=== PATIENT | male | born 1955 | race Caucasian/White ===

== ENCOUNTER 2017-05-31 12:10 | Inpatient (IN) | payer MEDICAID ==
[~2017-05-31] VITALS: Ht 188 cm; Wt 64.3 kg
[~2017-05-31 12:10] MED LIST: AZIT250T PO
[2017-05-31] MEDS ORDERED: ipratropium/albuterol 3ml nebule NEB ONE (12:20)
[2017-05-31] MEDS ORDERED: methylPREDNISolone sod succ 125mg/2ml vial IV ONE (12:20)
[2017-05-31] MEDS ORDERED: normal saline 1000ML IV soln IVB ONE (12:20)
[2017-05-31 12:50] LABS: BASOPHILS % (AUTO) 0 % (0-1); EOSINOPHILS % (AUTO) 0 % (0-6); HEMATOCRIT 46.1 % (42.0-52.0); LYMPHOCYTES # (AUTO) 1.6 X10'3 (1.1-4.8); LYMPHOCYTES % (AUTO) 12.8 % (21-51); MEAN CORPUSCULAR HGB CONC 34.8 % (33.0-36.5); MEAN CORPUSCULAR VOLUME 86.3 FL (78-98); MEAN PLATELET VOLUME 8.6 FL (7.4-10.4); MONOCYTES # (AUTO) 0.7 X10'3 (0-0.9); MONOCYTES % (AUTO) 5.4 % (2-12); NEUTROPHILS # (AUTO) 10.1 X10'3 (1.8-7.7); NEUTROPHILS % (AUTO) 81.8 % (42-75); PLATELET COUNT 317 X10'3 (140-440); RED BLOOD COUNT 5.34 X10'6 (4.70-6.10); RED CELL DISTRIBUTION WIDTH 14.1 % (11.5-14.5); WHITE BLOOD COUNT 12.4 X10'3 (4.5-11.0)
[2017-05-31 13:09] LABS: ALANINE AMINOTRANSFERASE 25 U/L (12-78); ALBUMIN 3.7 G/DL (3.4-5.0); ALBUMIN/GLOBULIN RATIO 0.8 (1.1-1.5); ALKALINE PHOSPHATASE 89 IU/L (46-116); ANION GAP 12 (8-16); ASPARTATE AMINO TRANSFERASE 19 U/L (10-37); BILIRUBIN,TOTAL 1.6 MG/DL (0.1-1.0); BLOOD UREA NITROGEN 22 MG/DL (7-18); BUN/CREATININE RATIO 21.4 (5.4-32.0); CALCIUM 9.1 MG/DL (8.5-10.1); CHLORIDE 97 MMOL/L (99-107); CREATININE 1.03 MG/DL (0.60-1.10); GLUCOSE 124 MG/DL (70-104); POTASSIUM 3.6 MMOL/L (3.5-5.1); SODIUM 134 MMOL/L (135-145); TOTAL CARBON DIOXIDE 24.9 MMOL/L (24-32); TOTAL PROTEIN 8.2 G/DL (6.4-8.2); eGFR 74 ML/MIN
[2017-05-31] MEDS ORDERED: aspirin 81mg tab.chew PO ONE (13:15)
[2017-05-31] MEDS ORDERED: nitroGLYCERIN 0.4mg SUBLingual tab SL PRN ×2 (13:15→15:15)
[2017-05-31] MEDS ORDERED: enoxaparin 100mg/ml syringe SUBCUT ONE (13:15)
[2017-05-31] MEDS ORDERED: heparin 10,000 units/1 ML INJ IV ONE ×2 (13:40→15:15)
[2017-05-31] MEDS ORDERED: levoFLOXACIN-Levaquin 750MG/D5 150 ML IV ONE (13:45)
[2017-05-31] MEDS ORDERED: magnesium Cl slow-release 64mg tablet PO PRN (15:15)
[2017-05-31] MEDS ORDERED: morphine 2 MG/ML inj. syringe IV PRN ×2 (15:15)
[2017-05-31] MEDS ORDERED: ipratropium/albuterol 3ml nebule NEB PRN (15:15)
[2017-05-31] MEDS ORDERED: potassium Cl 40MEQ/NS 500ml 500 ML IV PRN ×2 (15:15)
[2017-05-31] MEDS ORDERED: potassium Cl 20 mEq SR tablet PO PRN ×2 (15:15)
[2017-05-31] MEDS ORDERED: acetaminophen 325mg tablet PO PRN (15:15)
[2017-05-31] MEDS ORDERED: magnesium 2GM in 50ml NS 50 ML IV PRN (15:15)
[2017-05-31] MEDS ORDERED: enoxaparin 60mg/0.6ml syringe SUBCUT ONE (15:15)
[2017-05-31] MEDS ORDERED: magnesium hydroxide 30ml (MOM) UD suspension PO PRN (15:15)
[2017-05-31] MEDS ORDERED: metoprolol tartrate 1mg/ml inj IV PRN (15:15)
[2017-05-31] MEDS ORDERED: magnesium 4gm in 100ml NS 100 ML IV PRN (15:15)
[2017-05-31] MEDS ORDERED: ondansetron/PF 4mg/2ml inj IV PRN (15:15)
[2017-05-31] MEDS ORDERED: mag hydrox/Alum hydrox/simeth 30ml oral suspension PO PRN (15:15)
[2017-05-31] MEDS: normal saline 1000ml 1,000 ML IV SCH (16:00)
[2017-05-31] MEDS: vancomycin/NS 1 GM ADD-VANTAGE 250 ML IV SCH (16:00)
[2017-05-31 16:35] LABS: CLARITY,URINE CLEAR (Clear); COLOR,URINE YELLOW (Yellow); GLUCOSE, URINE 100 mg/dl (Neg); KETONES,URINE NEGATIVE (Neg); LEUKOCYTE ESTERASE ,URINE NEGATIVE (Neg); NITRITES, URINE NEGATIVE (Neg); OCCULT BLOOD,URINE TRACE-INTACT (Neg); PROTEIN,URINE NEGATIVE (Neg)
[2017-05-31 16:44] LABS: URINE AMPHETAMINE SCREEN POSITIVE (Neg); URINE BARBITUATE SCREEN NEGATIVE (Neg); URINE BENZODIAZEPINES SCREEN NEGATIVE (Neg); URINE CANNABINOID SCREEN POSITIVE (Neg); URINE COCAINE SCREEN NEGATIVE (Neg); URINE METHADONE SCREEN NEGATIVE (Neg); URINE OPIATE SCREEN NEGATIVE (Neg); URINE PHENCYCLIDINE SCREEN NEGATIVE (Neg)
[2017-05-31 16:57] LABS: UA COLLECTION TYPE URINAL
[2017-05-31 17:08] LABS: RBC,URINE 0-2 /HPF (0-2); WBC,URINE 0-4 /HPF (0-4)
[2017-05-31 17:09] LABS: BACTERIA,URINE NONE SEEN /HPF (Neg); MUCUS STRANDS NONE SEEN /LPF (Neg); SQUAMOUS EPITHELIAL CELL,UR NONE SEEN /LPF (FEW)
[2017-05-31] MEDS ORDERED: NO HOME MEDS (17:26)
[2017-05-31] MEDS: carVEDilol 3.125mg tablet PO SCH (19:59)
[2017-05-31] MEDS: heparin 10,000 units/1 ML INJ IV PRN (20:01)
[2017-06-01 00:54] LABS: BASOPHILS % (AUTO) 0.1 % (0-1); EOSINOPHILS % (AUTO) 0 % (0-6); HEMOGLOBIN 14.8 g/dl (14.0-17.9); LYMPHOCYTES # (AUTO) 0.6 X10'3 (1.1-4.8); LYMPHOCYTES % (AUTO) 7.1 % (21-51); MEAN CORPUSCULAR HEMOGLOBIN 29.2 PG (27.0-31.0); MEAN CORPUSCULAR HGB CONC 33.6 % (33.0-36.5); MEAN CORPUSCULAR VOLUME 86.7 FL (78-98); MEAN PLATELET VOLUME 8.3 FL (7.4-10.4); MONOCYTES # (AUTO) 0.3 X10'3 (0-0.9); NEUTROPHILS # (AUTO) 8.1 X10'3 (1.8-7.7); NEUTROPHILS % (AUTO) 89.8 % (42-75); PLATELET COUNT 295 X10'3 (140-440); RED BLOOD COUNT 5.07 X10'6 (4.70-6.10); RED CELL DISTRIBUTION WIDTH 13.3 % (11.5-14.5)
[2017-06-01 01:13] LABS: ALANINE AMINOTRANSFERASE 21 U/L (12-78); ALBUMIN/GLOBULIN RATIO 0.8 (1.1-1.5); ALKALINE PHOSPHATASE 76 IU/L (46-116); ANION GAP 11 (8-16); ASPARTATE AMINO TRANSFERASE 18 U/L (10-37); BILIRUBIN,TOTAL 0.8 MG/DL (0.1-1.0); BLOOD UREA NITROGEN 15 MG/DL (7-18); CALCIUM 8.5 MG/DL (8.5-10.1); CHLORIDE 104 MMOL/L (99-107); CREATININE 0.75 MG/DL (0.60-1.10); GLUCOSE 148 MG/DL (70-104); SODIUM 139 MMOL/L (135-145); TOTAL CARBON DIOXIDE 23.7 MMOL/L (24-32); eGFR > 90 ML/MIN
[2017-06-01] MEDS: heparin 10,000 units/1 ML INJ IV PRN ×2 (01:50→06:32)
[2017-06-01] MEDS: vancomycin/NS 1 GM ADD-VANTAGE 250 ML IV SCH ×2 (04:42→16:05)
[2017-06-01] MEDS ORDERED: metoprolol tartrate 1mg/ml inj IV PRN (07:05)
[2017-06-01] MEDS ORDERED: nitroGLYCERIN 0.4mg SUBLingual tab SL PRN (07:05)
[2017-06-01] MEDS ORDERED: regadenoson 0.4mg/5ml syringe IV ONE (07:05)
[2017-06-01] MEDS ORDERED: aminophylline 250mg/10ml inj. IV PRN (07:05)
[2017-06-01] MEDS ORDERED: aspirin 325mg tablet PO SCH (08:30)
[2017-06-01 08:45] VITALS: BP 129/83
[2017-06-01] MEDS: K and/or MAG REPLACEMENT MC SCH (09:19)
[2017-06-01] MEDS: atorvastatin 10mg tablet PO SCH (09:26)
[2017-06-01] MEDS: aspirin 81mg tab.chew PO SCH (09:26)
[2017-06-01] MEDS: carVEDilol 3.125mg tablet PO SCH ×2 (09:26→19:28)
[2017-06-01 10:17] LABS: CHOL/HDL RATIO 1.9 (0.00-4.99); CHOLESTEROL 139 MG/DL (0-200); HDL CHOLESTEROL 73 MG/DL (35-60); LDL CHOLESTEROL 59 MG/DL (50-100); TRIGLYCERIDES 45 MG/DL (20-135)
[2017-06-01 11:00] VITALS: BP 122/72
[2017-06-01] MEDS: normal saline 1000ml 1,000 ML IV SCH (12:26)
[2017-06-01 15:24] VITALS: BP 120/63
[2017-06-01 19:16] VITALS: BP 127/77
[2017-06-01] MEDS: lactobacillus rhamnosus 10,000 MMU CELLS/CAPSULE PO SCH (19:28)
[2017-06-01] MEDS: heparin, porcine 5000 units/ml vial SQ SCH (19:34)
[2017-06-01 20:50] VITALS: BP_SYST 117; BP_SYST 132; BP_SYST 145; BP_DIAS 110; BP_DIAS 67; BP_DIAS 80
[2017-06-01 22:00] VITALS: BP 120/68
[2017-06-02 02:00] VITALS: BP 101/75
[2017-06-02] MEDS ORDERED: VANCOMYCIN LEVEL IV ONE (03:30)
[2017-06-02 05:30] VITALS: BP 139/99
[2017-06-02 06:40] LABS: BASOPHILS % (AUTO) 0.5 % (0-1); EOSINOPHILS # (AUTO) 0.1 X10'3 (0-0.9); EOSINOPHILS % (AUTO) 2.1 % (0-6); HEMATOCRIT 42.6 % (42.0-52.0); HEMOGLOBIN 14.8 g/dl (14.0-17.9); LYMPHOCYTES % (AUTO) 35.4 % (21-51); MEAN CORPUSCULAR HGB CONC 34.6 % (33.0-36.5); MEAN CORPUSCULAR VOLUME 86.7 FL (78-98); MEAN PLATELET VOLUME 8.3 FL (7.4-10.4); MONOCYTES # (AUTO) 0.4 X10'3 (0-0.9); MONOCYTES % (AUTO) 7.3 % (2-12); NEUTROPHILS % (AUTO) 54.7 % (42-75); PLATELET COUNT 271 X10'3 (140-440); RED BLOOD COUNT 4.92 X10'6 (4.70-6.10); RED CELL DISTRIBUTION WIDTH 14.3 % (11.5-14.5); WHITE BLOOD COUNT 5.5 X10'3 (4.5-11.0)
[2017-06-02 06:56] LABS: ALANINE AMINOTRANSFERASE 22 U/L (12-78); ALBUMIN 2.9 G/DL (3.4-5.0); ALBUMIN/GLOBULIN RATIO 0.7 (1.1-1.5); ALKALINE PHOSPHATASE 66 IU/L (46-116); ANION GAP 10 (8-16); ASPARTATE AMINO TRANSFERASE 13 U/L (10-37); BILIRUBIN,TOTAL 0.3 MG/DL (0.1-1.0); BLOOD UREA NITROGEN 16 MG/DL (7-18); BUN/CREATININE RATIO 25.4 (5.4-32.0); CALCIUM 8.9 MG/DL (8.5-10.1); CHLORIDE 107 MMOL/L (99-107); CREATININE 0.63 MG/DL (0.60-1.10); GLUCOSE 89 MG/DL (70-104); MAGNESIUM 1.9 MG/DL (1.5-2.4); POTASSIUM 4.2 MMOL/L (3.5-5.1); SODIUM 141 MMOL/L (135-145); TOTAL CARBON DIOXIDE 23.7 MMOL/L (24-32); TOTAL PROTEIN 6.9 G/DL (6.4-8.2); VANCOMYCIN,TROUGH 4.4 UG/ML (6.0-14.0); eGFR > 90 ML/MIN
[2017-06-02] MEDS ORDERED: magnesium 2GM in 50ml NS 50 ML IV ONE (07:35)
[2017-06-02] MEDS: K and/or MAG REPLACEMENT MC SCH (08:00)
[2017-06-02] MEDS: heparin, porcine 5000 units/ml vial SQ SCH (08:27)
[2017-06-02] MEDS: carVEDilol 3.125mg tablet PO SCH (08:27)
[2017-06-02] MEDS: atorvastatin 10mg tablet PO SCH (08:27)
[2017-06-02] MEDS: lactobacillus rhamnosus 10,000 MMU CELLS/CAPSULE PO SCH (08:27)
[2017-06-02] MEDS: aspirin 81mg tab.chew PO SCH (08:27)
[2017-06-02] MEDS ORDERED: vancomycin/NS 1 GM ADD-VANTAGE 250 ML IV SCH (09:00)
[2017-06-02] MEDS ORDERED: NITR0.4T51 SL (09:54)
[2017-06-02] MEDS ORDERED: SULF1TAB49 PO (09:54)
[2017-06-02] MEDS ORDERED: COR3.125T PO (09:54)
[2017-06-02] MEDS ORDERED: ASPI-1265 PO (09:54)
[2017-06-02] MEDS ORDERED: ATOR10TA PO (09:54)
[2017-06-02 11:00] VITALS: BP 125/77
[2017-06-02 12:00] VITALS: BP_SYST 115; BP_SYST 117; BP_SYST 125; BP_DIAS 74; BP_DIAS 77; BP_DIAS 85
[2017-06-03] MEDS ORDERED: VANCOMYCIN LEVEL IV NR (08:30)
== END 2017-06-02 13:00 | disposition home or self-care (01) | DRG 383 ==
LOC: ER 12:12 → ED HOLD 15:14 → PCU 3S 06-01 08:31
PROVIDERS: ADMIT Family Medicine; ATTEND Family Medicine
DX: L03.114 Cellulitis of left upper limb (principal); I47.2 Ventricular tachycardia; R07.9 Chest pain, unspecified; I25.2 Old myocardial infarction; I10 Essential (primary) hypertension; E78.00 Pure hypercholesterolemia, unspecified; E78.5 Hyperlipidemia, unspecified; F17.210 Nicotine dependence, cigarettes, uncomplicated; B19.20 Unspecified viral hepatitis C without hepatic coma; G89.29 Other chronic pain; M54.9 Dorsalgia, unspecified; J44.0 Chronic obstructive pulmonary disease with (acute) lower respiratory infection; F15.10 Other stimulant abuse, uncomplicated; Z59.0 Homelessness; L03.012 Cellulitis of left finger; W18.39XA Other fall on same level, initial encounter; Z82.5 Family history of asthma and other chronic lower respiratory diseases; Z83.3 Family history of diabetes mellitus; Z88.8 Allergy status to other drugs, medicaments and biological substances; Z91.041 Radiographic dye allergy status; Z68.1 Body mass index [BMI] 19.9 or less, adult; Z91.14 Patient's other noncompliance with medication regimen; Z95.1 Presence of aortocoronary bypass graft; Y93.89 Activity, other specified; Y92.89 Other specified places as the place of occurrence of the external cause; Y99.8 Other external cause status; Z95.5 Presence of coronary angioplasty implant and graft; Z91.19 Patient's noncompliance with other medical treatment and regimen
CPT/HCPCS: 36415; 71046; 73110; 80053; 80061; 80202; 80305; 81001; 83605; 83735; 83880; 84484; 85025; 85730; 87040; 87070; 93005; 93306; 94640; 94760; 96365; 96375; 99291; J1644; J1956; J2930; J3370; J3475; J7030

== ENCOUNTER 2018-03-01 16:01 | Emergency (ER) | payer MEDICAID ==
[~2018-03-01] VITALS: Ht 180.3 cm; Wt 68.2 kg
[~2018-03-01 16:01] MED LIST changes: +ASPI-1265 PO; +ATOR10TA PO; -AZIT250T PO; +COR3.125T PO; +NITR0.4T51 SL; +NO HOME MEDS
[2018-03-01 16:11] VITALS: BP 149/77
[2018-03-01] MEDS ORDERED: ALBU8HFA PO (16:16)
[2018-03-01] MEDS ORDERED: AZIT250T83 PO (16:16)
== END 2018-03-01 16:29 | disposition home or self-care (01) ==
LOC: ER 16:02
DX: J40 Bronchitis, not specified as acute or chronic (principal); E78.00 Pure hypercholesterolemia, unspecified; I10 Essential (primary) hypertension; I25.2 Old myocardial infarction; J44.9 Chronic obstructive pulmonary disease, unspecified; G89.29 Other chronic pain; Z98.61 Coronary angioplasty status; Z79.82 Long term (current) use of aspirin; Z79.2 Long term (current) use of antibiotics; Z79.899 Other long term (current) drug therapy; Z91.048 Other nonmedicinal substance allergy status; Z88.6 Allergy status to analgesic agent; Z88.8 Allergy status to other drugs, medicaments and biological substances
CPT/HCPCS: 99283

== ENCOUNTER 2022-08-30 21:29 | Emergency (ER) | payer MEDICARE, MEDICAID ==
[~2022-08-30] VITALS: Ht 180.3 cm; Wt 70.0 kg
[2022-08-30 21:52] VITALS: BP 133/92
== END 2022-08-31 00:30 | disposition home or self-care (01) ==
LOC: ER 21:30
DX: S42.402A Unspecified fracture of lower end of left humerus, initial encounter for closed fracture (principal); E78.00 Pure hypercholesterolemia, unspecified; I10 Essential (primary) hypertension; J44.9 Chronic obstructive pulmonary disease, unspecified; Z91.09 Other allergy status, other than to drugs and biological substances; Z88.6 Allergy status to analgesic agent; Z91.041 Radiographic dye allergy status; W01.0XXA Fall on same level from slipping, tripping and stumbling without subsequent striking against object, initial encounter; Y93.89 Activity, other specified; Y92.89 Other specified places as the place of occurrence of the external cause; Y99.8 Other external cause status
CPT/HCPCS: 29105; 73080; 73090; 73110; 73130; 99284

== ENCOUNTER 2024-04-08 19:24 | Inpatient (IN) | payer MEDICARE, MEDICAID ==
[~2024-04-08] VITALS: Ht 180.3 cm; Wt 68.2 kg
[~2024-04-08 19:24] MED LIST changes: +CARV3.1232 PO; -COR3.125T PO
[2024-04-08 23:58] LABS: BASOPHILS % (AUTO) 0.4 % (0-1); EOSINOPHILS # (AUTO) 0.1 X10'3 (0-0.9); EOSINOPHILS % (AUTO) 0.7 % (0-6); HEMATOCRIT 44.9 % (42.0-52.0); HEMOGLOBIN 15.8 g/dl (14.0-17.9); MEAN CORPUSCULAR HEMOGLOBIN 30.4 PG (27.0-31.0); MEAN CORPUSCULAR HGB CONC 35.1 g/dL (33.0-36.5); MEAN CORPUSCULAR VOLUME 86.5 FL (78-98); MEAN PLATELET VOLUME 7.8 FL (7.4-10.4); MONOCYTES # (AUTO) 0.8 X10'3 (0-0.9); NEUTROPHILS % (AUTO) 67.9 % (42-75); PLATELET COUNT 335 X10'3 (140-440); RED BLOOD COUNT 5.19 X10'6 (4.70-6.10); WHITE BLOOD COUNT 8.9 X10'3 (4.5-11.0)
[2024-04-09] VITALS (14 sets, daily range): BP systolic 124–147; BP diastolic 79–92; PULSE 73–94; RESP 14–18; TEMP 97.7–99; O2SAT 95–100
[2024-04-09 00:19] LABS: ALANINE AMINOTRANSFERASE 34 U/L (12-78); ALBUMIN 3.3 G/DL (3.4-5.0); ALBUMIN/GLOBULIN RATIO 0.8 (1.1-1.5); ALKALINE PHOSPHATASE 98 IU/L (46-116); ANION GAP 5 (8-16); ASPARTATE AMINO TRANSFERASE 42 U/L (10-37); BILIRUBIN,TOTAL 0.8 MG/DL (0.1-1.0); BLOOD UREA NITROGEN 16 MG/DL (7-18); BUN/CREATININE RATIO 21.6 (10.0-20.0); CALCIUM 9.6 MG/DL (8.5-10.1); CHLORIDE 103 MMOL/L (99-107); CREATININE 0.74 MG/DL (0.60-1.10); GLUCOSE 108 MG/DL (70-104); POTASSIUM 3.7 MMOL/L (3.5-5.1); SODIUM 138 MMOL/L (135-145); TOTAL CARBON DIOXIDE 30.2 MMOL/L (24-32); TOTAL PROTEIN 7.4 G/DL (6.4-8.2); eCRCL 91 ML/MIN; eGFR > 90 ML/MIN
[2024-04-09] MEDS ORDERED: enoxaparin 100mg/ml syringe SUBCUT ONE (03:00)
[2024-04-09] MEDS: enoxaparin 40mg/0.4ml syringe SQ ONE (03:17)
[2024-04-09] MEDS: enoxaparin 30mg/0.3ml syringe SUBCUT ONE (03:17)
[2024-04-09] MEDS ORDERED: potassium Cl 40MEQ/1/2NS 520ml 520 ML IV PRN (03:30)
[2024-04-09] MEDS ORDERED: magnesium hydroxide 30ml (MOM) UD suspension PO PRN (03:30)
[2024-04-09] MEDS ORDERED: HYDROmorphone inj. 0.5 MG/0.5 ML DISP.SYRIN IV PRN (03:30)
[2024-04-09] MEDS ORDERED: mag hydrox/Alum hydrox/simeth 30ml oral suspension PO PRN (03:30)
[2024-04-09] MEDS ORDERED: magnesium sulf-water 4G/100mL 100 ML IV PRN (03:30)
[2024-04-09] MEDS ORDERED: acetaminophen 325mg tablet PO PRN (03:30)
[2024-04-09] MEDS ORDERED: HYDROmorphone/PF 0.2 MG/ML SYRINGE IV PRN (03:30)
[2024-04-09] MEDS ORDERED: magnesium Cl slow-release 64mg tablet PO PRN (03:30)
[2024-04-09] MEDS ORDERED: potassium Cl 20 mEq SR tablet PO PRN ×2 (03:30)
[2024-04-09] MEDS ORDERED: magnesium sulf-water 2g/50mL 50 ML IV PRN (03:30)
[2024-04-09] MEDS ORDERED: morphine 2 MG/ML inj. syringe IV PRN (03:30)
[2024-04-09] MEDS ORDERED: ondansetron/PF 4mg/2ml inj IV PRN (03:30)
[2024-04-09] MEDS: heparin 10,000 units/1 ML INJ IV ONE (03:45)
[2024-04-09] MEDS ORDERED: heparin 10,000 units/1 ML INJ IV PRN (03:45)
[2024-04-09] MEDS: normal saline 1000ml 1,000 ML IV SCH (03:56)
[2024-04-09] MEDS: clopidogrel 300mg tablet PO ONE (03:56)
[2024-04-09] MEDS: aspirin 325mg tablet PO ONE (03:56)
[2024-04-09 04:11] LABS: APTT 26 SECONDS (22-32); PROTHROMBIN TIME 10.3 SECONDS (9.0-12.0)
[2024-04-09 04:22] LABS: CHOL/HDL RATIO 2.8 (0.00-4.99); CHOLESTEROL 177 MG/DL (0-200); HDL CHOLESTEROL 64 MG/DL (35-60); LDL CHOLESTEROL 95 MG/DL (50-100); MAGNESIUM 2.1 MG/DL (1.5-2.4); PRO BRAIN NATRIURETIC PEPTIDE 816 PG/ML (0-125); TRIGLYCERIDES 80 MG/DL (20-135)
[2024-04-09] MEDS: heparin 25,000 UNIT/250ml bag 250 ML IV PRN (05:16)
[2024-04-09] MEDS: MESSAGE TO NURSING IV ONE (05:17)
[2024-04-09] MEDS ORDERED: nitroGLYCERIN 0.4mg SUBLingual tab SL PRN (06:50)
[2024-04-09] MEDS ORDERED: aminophylline 500mg/20ml vial IV PRN (06:50)
[2024-04-09] MEDS ORDERED: metoprolol tartrate 1mg/ml inj IV PRN (06:50)
[2024-04-09 07:16] LABS: BASOPHILS # (AUTO) 0.1 X10'3 (0-0.2); BASOPHILS % (AUTO) 0.6 % (0-1); EOSINOPHILS # (AUTO) 0.1 X10'3 (0-0.9); EOSINOPHILS % (AUTO) 0.9 % (0-6); HEMATOCRIT 45.6 % (42.0-52.0); HEMOGLOBIN 15.5 g/dl (14.0-17.9); LYMPHOCYTES # (AUTO) 1.9 X10'3 (1.1-4.8); MEAN CORPUSCULAR HEMOGLOBIN 29.6 PG (27.0-31.0); MEAN CORPUSCULAR HGB CONC 33.9 g/dL (33.0-36.5); MEAN CORPUSCULAR VOLUME 87.4 FL (78-98); MONOCYTES # (AUTO) 0.8 X10'3 (0-0.9); NEUTROPHILS # (AUTO) 6.6 X10'3 (1.8-7.7); NEUTROPHILS % (AUTO) 70.5 % (42-75); PLATELET COUNT 355 X10'3 (140-440); RED BLOOD COUNT 5.22 X10'6 (4.70-6.10); RED CELL DISTRIBUTION WIDTH 14.1 % (11.5-14.5); WHITE BLOOD COUNT 9.4 X10'3 (4.5-11.0)
[2024-04-09] MEDS: clopidogrel 75mg tablet PO SCH (07:49)
[2024-04-09] MEDS: docusate sod 100mg capsule PO SCH (07:49)
[2024-04-09] MEDS: carVEDilol 3.125mg tablet PO SCH (07:49)
[2024-04-09] MEDS: aspirin 81mg tab.chew PO SCH (07:49)
[2024-04-09] MEDS: atorvastatin 20mg tablet PO SCH (07:49)
[2024-04-09] MEDS: K and/or MAG REPLACEMENT MC SCH (07:50)
[2024-04-09] MEDS ORDERED: TIOT18CA8 (07:53)
[2024-04-09] MEDS ORDERED: ALBU18HF2 (07:53)
[2024-04-09 09:12] LABS: BILIRUBIN,URINE NEGATIVE (Neg); CLARITY,URINE CLEAR (Clear); COLOR,URINE YELLOW (Yellow); GLUCOSE, URINE 100 mg/dl (Neg); KETONES,URINE NEGATIVE (Neg); LEUKOCYTE ESTERASE ,URINE NEGATIVE (Neg); OCCULT BLOOD,URINE NEGATIVE (Neg); PROTEIN,URINE NEGATIVE (Neg); UROBILINOGEN,URINE 0.2 E.U/dL (0.2-1.0)
[2024-04-09] MEDS: regadenoson 0.4mg/5ml syringe IV PRN (09:16)
[2024-04-09 09:17] LABS: NITRITES, URINE NEGATIVE (Neg); UA COLLECTION TYPE CLN CATCH MIDSTREAM
[2024-04-09 09:20] LABS: URINE AMPHETAMINE SCREEN POSITIVE (Neg); URINE BARBITUATE SCREEN NEGATIVE (Neg); URINE BENZODIAZEPINES SCREEN NEGATIVE (Neg); URINE CANNABINOID SCREEN POSITIVE (Neg); URINE COCAINE SCREEN NEGATIVE (Neg); URINE METHADONE SCREEN NEGATIVE (Neg); URINE OPIATE SCREEN NEGATIVE (Neg); URINE PHENCYCLIDINE SCREEN NEGATIVE (Neg)
[2024-04-09] MEDS ORDERED: EMPA10TA PO (18:00)
[2024-04-09] MEDS ORDERED: PRED10TA23 PO (18:00)
[2024-04-09] MEDS ORDERED: ATOR40TA71 PO (18:00)
[2024-04-09] MEDS ORDERED: BUDE10.2 INH (18:00)
[2024-04-09] MEDS ORDERED: AZIT500T9 PO (18:00)
[2024-04-09] MEDS ORDERED: LACT1CAP26 PO (18:00)
[2024-04-09] MEDS ORDERED: LOSA50TA64 PO (18:00)
[2024-04-09] MEDS: heparin, porcine 5000 units/ml vial SQ SCH (19:37)
[2024-04-09] MEDS: morphine 2 MG/ML inj. syringe IV PRN (20:24)
[2024-04-10] VITALS (8 sets, daily range): BP systolic 112–142; BP diastolic 78–98; PULSE 79–94; RESP 14–18; TEMP 97.4–98.8; O2SAT 96–98
[2024-04-10 06:43] LABS: BASOPHILS % (AUTO) 0.6 % (0-1); EOSINOPHILS # (AUTO) 0.1 X10'3 (0-0.9); EOSINOPHILS % (AUTO) 1.9 % (0-6); HEMATOCRIT 45.6 % (42.0-52.0); HEMOGLOBIN 15.6 g/dl (14.0-17.9); LYMPHOCYTES # (AUTO) 1.5 X10'3 (1.1-4.8); LYMPHOCYTES % (AUTO) 20.7 % (21-51); MEAN CORPUSCULAR HEMOGLOBIN 30.1 PG (27.0-31.0); MEAN CORPUSCULAR HGB CONC 34.1 g/dL (33.0-36.5); MEAN CORPUSCULAR VOLUME 88.4 FL (78-98); MEAN PLATELET VOLUME 8.1 FL (7.4-10.4); MONOCYTES # (AUTO) 0.5 X10'3 (0-0.9); MONOCYTES % (AUTO) 6.8 % (2-12); NEUTROPHILS # (AUTO) 5.2 X10'3 (1.8-7.7); PLATELET COUNT 346 X10'3 (140-440); RED BLOOD COUNT 5.16 X10'6 (4.70-6.10); RED CELL DISTRIBUTION WIDTH 14.3 % (11.5-14.5); WHITE BLOOD COUNT 7.4 X10'3 (4.5-11.0)
[2024-04-10 07:01] LABS: ALANINE AMINOTRANSFERASE 28 U/L (12-78); ALBUMIN 2.9 G/DL (3.4-5.0); ALBUMIN/GLOBULIN RATIO 0.7 (1.1-1.5); ALKALINE PHOSPHATASE 88 IU/L (46-116); ANION GAP 9 (8-16); ASPARTATE AMINO TRANSFERASE 24 U/L (10-37); BILIRUBIN,TOTAL 0.8 MG/DL (0.1-1.0); BLOOD UREA NITROGEN 18 MG/DL (7-18); CALCIUM 8.8 MG/DL (8.5-10.1); CHLORIDE 103 MMOL/L (99-107); CREATININE 0.72 MG/DL (0.60-1.10); GLUCOSE 118 MG/DL (70-104); POTASSIUM 4.2 MMOL/L (3.5-5.1); SODIUM 137 MMOL/L (135-145); TOTAL CARBON DIOXIDE 24.6 MMOL/L (24-32); TOTAL PROTEIN 7.2 G/DL (6.4-8.2); eCRCL 96 ML/MIN; eGFR > 90 ML/MIN
[2024-04-10] MEDS: EMPAGLIFLOZIN 10 MG TABLET PO SCH (08:15)
[2024-04-10] MEDS: losartan 50mg tablet PO SCH (09:16)
[2024-04-11 02:00] VITALS: BP 145/96; PULSE 74; RESP 16; TEMP 98.7; O2SAT 95
[2024-04-11 06:58] LABS: BASOPHILS % (AUTO) 0.7 % (0-1); EOSINOPHILS # (AUTO) 0.1 X10'3 (0-0.9); EOSINOPHILS % (AUTO) 1.8 % (0-6); HEMATOCRIT 46.8 % (42.0-52.0); HEMOGLOBIN 16.1 g/dl (14.0-17.9); LYMPHOCYTES # (AUTO) 1.6 X10'3 (1.1-4.8); LYMPHOCYTES % (AUTO) 23.7 % (21-51); MEAN CORPUSCULAR HEMOGLOBIN 30.2 PG (27.0-31.0); MEAN CORPUSCULAR HGB CONC 34.4 g/dL (33.0-36.5); MEAN CORPUSCULAR VOLUME 87.7 FL (78-98); MEAN PLATELET VOLUME 7.7 FL (7.4-10.4); MONOCYTES # (AUTO) 0.4 X10'3 (0-0.9); MONOCYTES % (AUTO) 6.2 % (2-12); NEUTROPHILS # (AUTO) 4.6 X10'3 (1.8-7.7); NEUTROPHILS % (AUTO) 67.6 % (42-75); PLATELET COUNT 365 X10'3 (140-440); RED BLOOD COUNT 5.33 X10'6 (4.70-6.10); RED CELL DISTRIBUTION WIDTH 14.1 % (11.5-14.5); WHITE BLOOD COUNT 6.7 X10'3 (4.5-11.0)
[2024-04-11 07:23] VITALS: BP 157/95; PULSE 76; RESP 17; TEMP 97.4; O2SAT 100
[2024-04-11 07:34] LABS: ALANINE AMINOTRANSFERASE 24 U/L (12-78); ALBUMIN/GLOBULIN RATIO 0.7 (1.1-1.5); ALKALINE PHOSPHATASE 91 IU/L (46-116); ANION GAP 9 (8-16); ASPARTATE AMINO TRANSFERASE 19 U/L (10-37); BILIRUBIN,TOTAL 0.7 MG/DL (0.1-1.0); BLOOD UREA NITROGEN 20 MG/DL (7-18); BUN/CREATININE RATIO 24.4 (10.0-20.0); CALCIUM 9.3 MG/DL (8.5-10.1); CHLORIDE 102 MMOL/L (99-107); CREATININE 0.82 MG/DL (0.60-1.10); GLUCOSE 159 MG/DL (70-104); MAGNESIUM 3.3 MG/DL (1.5-2.4); POTASSIUM 4.5 MMOL/L (3.5-5.1); SODIUM 136 MMOL/L (135-145); TOTAL CARBON DIOXIDE 25.4 MMOL/L (24-32); TOTAL PROTEIN 7.6 G/DL (6.4-8.2); eCRCL 84 ML/MIN; eGFR > 90 ML/MIN
[2024-04-11 08:00] VITALS: RESP 17; O2SAT 100
[2024-04-11] MEDS: spironolactone 25 MG tablet PO SCH (08:26)
[2024-04-11 08:27] VITALS: BP_SYST 157; PULSE 76
[2024-04-11] MEDS ORDERED: SPIR25TA5 PO (10:32)
== END 2024-04-11 13:35 | disposition home or self-care (01) | DRG 913 ==
LOC: ER 19:25 → EDBEDREQ 04-09 03:35 → ED HOLD 04-09 03:41 → EDBEDREQSVC 04-09 04:47 → EDBEDREQ 04-09 04:47 → PCU 3S 04-09 10:55
PROVIDERS: ADMIT Surgery Surgical Critical Care; ATTEND Family Medicine
PROC: 4A02XM4 Measurement of Cardiac Total Activity, External Approach (ICD-10-PCS; principal; 2024-04-09)
PROC: 3E033HZ Introduction of Radioactive Substance into Peripheral Vein, Percutaneous Approach (ICD-10-PCS; 2024-04-09)
DX: S49.81XA Other specified injuries of right shoulder and upper arm, initial encounter (principal); I21.A1 Myocardial infarction type 2; I50.22 Chronic systolic (congestive) heart failure; I42.7 Cardiomyopathy due to drug and external agent; E86.0 Dehydration; I25.10 Atherosclerotic heart disease of native coronary artery without angina pectoris; Z20.822 Contact with and (suspected) exposure to COVID-19; J44.9 Chronic obstructive pulmonary disease, unspecified; I11.0 Hypertensive heart disease with heart failure; E78.00 Pure hypercholesterolemia, unspecified; W18.39XA Other fall on same level, initial encounter; G89.29 Other chronic pain; M54.9 Dorsalgia, unspecified; I25.2 Old myocardial infarction; Z91.041 Radiographic dye allergy status; Y99.8 Other external cause status; Z88.6 Allergy status to analgesic agent; Z95.1 Presence of aortocoronary bypass graft; Z79.82 Long term (current) use of aspirin; Z79.899 Other long term (current) drug therapy; Y93.89 Activity, other specified; Y92.89 Other specified places as the place of occurrence of the external cause
CPT/HCPCS: 36415; 71045; 73030; 73221; 78452; 80053; 80061; 80305; 81003; 83735; 83880; 84484; 85025; 85610; 85730; 87081; 87502; 87503; 87811; 93005; 93017; 93306; 93880; 96372; 99291; A4565; A9500; G0378; J1644; J1650; J2270; J2785; J7030